=== PATIENT | female | born 1995 | race African-American/Black ===

== ENCOUNTER 2018-03-23 15:11 | Emergency (ER) | payer BC, MEDICAID ==
--- NOTE | 2018-03-23 15:43 | ER Document Report ---
ED Medical Screen (RME) - General Chief Complaint: Psych Problem Stated Complaint: PSYCH EVAL Time Seen by Provider: 03/23/18 15:35 Notes: RAPID MEDICAL EVALUATION DISCLOSURE I have seen this patient as part of a Rapid Medical Evaluation and, if applicable, placed any initially appropriate orders. The patient will be seen and fully evaluated, including a full history and physical exam, by a provider ( in Main ED or Fast Track) when a room becomes available. 22-year-old female brought here by mother after recommendations to do so by her school counselor for a mental health evaluation. Mother states that over the past year, she has been having mood swings, lashing out at others, becoming very angry, having suicidal thoughts, and wanted to bring her here to be evaluated. The patient does endorse suicidal ideations but does not have a plan. She denies homicidal ideations. She does smoke marijuana but denies other illicit drugs and alcohol. Denies any formal psychiatric diagnoses and mother states "she has never been put on any medicines". EXAM CTAB RRR TRAVEL OUTSIDE OF THE [place] IN LAST 30 DAYS: No - Related Data Allergies/Adverse Reactions: No Known Allergies Allergy (Unverified 01/04/14 23:19) Past Medical History - Immunizations Immunizations up to date: Yes Hx Diphtheria, Pertussis, Tetanus Vaccination: Yes Physical Exam - Vital signs Vitals: Temp Pulse Resp BP Pulse Ox 98.7 F 77 16 141/99 H 100 03/23/18 15:17 03/23/18 15:17 03/23/18 15:17 03/23/18 15:17 03/23/18 15:17 Course - Vital Signs Vital signs: Temp Pulse Resp BP Pulse Ox 98.7 F 77 16 141/99 H 100 03/23/18 15:17 03/23/18 15:17 03/23/18 15:17 03/23/18 15:17 03/23/18 15:17 Doctor's Discharge - Discharge Referrals: KANDI VIDAL MD [Primary Care Provider] - Follow up as needed
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
[2018-03-23 17:10] LABS: ABSOLUTE EOSINOPHILS # (AUTO) 0.1 10^3/uL (0.0-0.6); ABSOLUTE MONOCYTES (AUTO) 0.4 10^3/uL (0.1-1.4); ABSOLUTE NEUT (AUTO) 2.5 10^3/uL (1.7-8.2); BASOPHILS % (AUTO) 0.6 % (0-2); HEMATOCRIT 44.1 % (36.0-47.0); HEMOGLOBIN 14.7 g/dL (12.0-15.5); LYMPHOCYTES % (AUTO) 40.1 % (13-45); MEAN CORPUSCULAR HEMOGLOBIN 29.2 pg (27.0-33.4); MEAN CORPUSCULAR HGB CONC 33.2 g/dL (32.0-36.0); MEAN CORPUSCULAR VOLUME 88 fl (80-97); MONOCYTES % (AUTO) 8.5 % (3-13); PLATELET COUNT 150 10^3/uL (150-450); RED BLOOD COUNT 5.03 10^6/uL (3.72-5.28); RED CELL DISTRIBUTION WIDTH 13.3 % (11.5-14.0); SEGMENTED NEUTROPHILS % (AUTO) 49.8 % (42-78); TOTAL CELLS COUNTED % (AUTO) 100 %
[2018-03-23 17:17] LABS: APPEARANCE,URINE CLEAR; BILIRUBIN,URINE NEGATIVE (NEGATIVE); COLOR,URINE YELLOW; GLUCOSE, URINE NEGATIVE (NEGATIVE); KETONES,URINE NEGATIVE (NEGATIVE); LEUKOCYTE ESTERASE,URINE NEGATIVE (NEGATIVE); NITRITE,URINE NEGATIVE (NEGATIVE); PROTEIN,URINE NEGATIVE (NEGATIVE); URINE SPECIFIC GRAVITY 1.009
[2018-03-23] MEDS ORDERED: OLANZAPINE INJ/PF 10 MG SDV IM ONE (17:24)
[2018-03-23] MEDS ORDERED: CHLORPROMAZINE HCL 50 MG TABLET PO PRN (17:24)
[2018-03-23] MEDS ORDERED: BENZTROPINE MESYLATE INJ 2 MG/2 ML AMPULE IM ONE (17:25)
[2018-03-23 17:34] LABS: URINE AMPHETAMINES SCREEN NEGATIVE; URINE BARBITURATES SCREEN NEGATIVE; URINE BENZODIAZEPINES SCREEN NEGATIVE; URINE COCAINE SCREEN NEGATIVE; URINE MARIJUANA (THC) SCREEN UNCONFIRMED POSITIVE; URINE METHADONE SCREEN NEGATIVE; URINE PHENCYCLIDINE SCREEN NEGATIVE
[2018-03-23 17:41] LABS: ALANINE AMINOTRANSFERASE 16 U/L (9-52); ALBUMIN 4.6 g/dL (3.5-5.0); ALKALINE PHOSPHATASE 48 U/L (38-126); ANION GAP 14 (5-19); ASPARTATE AMINO TRANSFERASE 21 U/L (14-36); BILIRUBIN,DIRECT 0.3 mg/dL (0.0-0.4); BILIRUBIN,TOTAL 0.7 mg/dL (0.2-1.3); BLOOD UREA NITROGEN 7 mg/dL (7-20); CALCIUM 9.9 mg/dL (8.4-10.2); CARBON DIOXIDE 26 mmol/L (22-30); CHLORIDE 105 mmol/L (98-107); GLUCOSE 81 mg/dL (75-110); POTASSIUM 3.6 mmol/L (3.6-5.0); SODIUM 144.7 mmol/L (137-145); TOTAL PROTEIN 8.3 g/dL (6.3-8.2)
[2018-03-23 17:42] LABS: ACETAMINOPHEN < 10 ug/mL (10-30); ALCOHOL < 10 mg/dL (NONE DETECTED); SALICYLATE < 1.0 mg/dL (2.0-20.0)
--- NOTE | 2018-03-23 19:56 | EKG REPORT ---
SEVERITY:- ABNORMAL ECG - SINUS RHYTHM ATRIAL PREMATURE COMPLEX PROBABLE LEFT VENTRICULAR HYPERTROPHY : Confirmed by: Issac Tipton MD 23-Mar-2018 19:55:53
--- NOTE | 2018-03-23 22:32 | ER Document Report ---
ED Psych Disorder / Suicide - General Chief Complaint: Psych Problem Stated Complaint: PSYCH EVAL Time Seen by Provider: 03/23/18 15:35 Notes: 22-year-old female patient sent here for evaluation of suicidal ideation and depression. Patient refusing to talk to me at this time will only talk to mental health provider. Will not cooperate with the exam. Tearful and crying TRAVEL OUTSIDE OF THE [place] IN LAST 30 DAYS: No - HPI Patient complains to provider of: Agitated, Suicidal ideation Onset: Other - Unknown - Related Data Allergies/Adverse Reactions: No Known Allergies Allergy (Unverified 01/04/14 23:19) Past Medical History - General Information source: [facility] Records Cannot obtain history due to: Uncooperative - Social History Smoking Status: Current Every Day Smoker Chew tobacco use (# tins/day): No Frequency of alcohol use: Rare Drug Abuse: Marijuana Family History: Reviewed & Not Pertinent Patient has suicidal ideation: Yes Patient has homicidal ideation: No Pulmonary Medical History: Reports: Hx Asthma Renal/ Medical History: Denies: Hx Peritoneal Dialysis Psychiatric Medical History: Reports: Hx Depression Past Surgical History: Reports: Hx Tonsillectomy - Immunizations Immunizations up to date: Yes Hx Diphtheria, Pertussis, Tetanus Vaccination: Yes Review of Systems - Review of Systems -: Yes ROS unobtainable due to patient's medical condition - She is uncooperative, will not cooperate with questioning or exam. Physical Exam - Vital signs Vitals: Temp Pulse Resp BP Pulse Ox 98.7 F 77 16 141/99 H 100 03/23/18 15:17 03/23/18 15:17 03/23/18 15:17 03/23/18 15:17 03/23/18 15:17 Interpretation: Normal - General General appearance: Appears well, Alert - HEENT Head: Normocephalic, Atraumatic Eyes: Normal Pupils: PERRL - Respiratory Respiratory status: No respiratory distress Chest status: Nontender Breath sounds: Normal Chest palpation: Normal - Cardiovascular Rhythm: Regular Heart sounds: Normal auscultation Murmur: No - Abdominal Inspection: Normal Distension: No distension Bowel sounds: Normal Tenderness: Nontender Organomegaly: No organomegaly - Extremities General upper extremity: Normal inspection, Nontender, Normal color, Normal ROM , Normal temperature General lower extremity: Normal inspection, Nontender, Normal color, Normal ROM , Normal temperature, Normal weight bearing. No: Gricelda's sign - Skin Skin Temperature: Warm Skin Moisture: Dry Skin Color: Normal Course - Re-evaluation Re-evalutation: 03/23/18 22:31 Mental health was able to get more information on patient. Currently at this time they made what medication recommendations and I have complied with these recommendations. Patient is sleeping at this time. Will continue to follow throughout the night but anticipate she will be here overnight mental health will need to see her in the morning. 03/23/18 22:32 Laboratory 03/23/18 03/23/18 03/23/18 16:51 16:51 16:51 WBC 5.0 RBC 5.03 Hgb 14.7 Hct 44.1 MCV 88 MCH 29.2 MCHC 33.2 RDW 13.3 Plt Count 150 Seg Neutrophils % 49.8 Lymphocytes % 40.1 Monocytes % 8.5 Eosinophils % 1.0 Basophils % 0.6 Absolute Neutrophils 2.5 Absolute Lymphocytes 2.0 Absolute Monocytes 0.4 Absolute Eosinophils 0.1 Absolute Basophils 0.0 Sodium 144.7 Potassium 3.6 Chloride 105 Carbon Dioxide 26 Anion Gap 14 BUN 7 Creatinine 0.64 Est GFR ( Amer) > 60 Est GFR (Non-Af Amer) > 60 Glucose 81 Calcium 9.9 Total Bilirubin 0.7 Direct Bilirubin 0.3 Neonat Total Bilirubin Not Reportable Neonat Direct Bilirubin Not Reportable Neonat Indirect Bili Not Reportable AST 21 ALT 16 Alkaline Phosphatase 48 Total Protein 8.3 H Albumin 4.6 Urine Color YELLOW Urine Appearance CLEAR Urine pH 6.0 Ur Specific [place] 1.009 Urine Protein NEGATIVE Urine Glucose (UA) NEGATIVE Urine Ketones NEGATIVE Urine Blood NEGATIVE Urine Nitrite NEGATIVE Urine Bilirubin NEGATIVE Urine Urobilinogen 2.0 H Ur Leukocyte Esterase NEGATIVE Urine WBC (Auto) 1 Urine RBC (Auto) 0 Squamous Epi Cells Auto 1 Urine Mucus (Auto) RARE Urine Ascorbic Acid NEGATIVE Salicylates < 1.0 L Urine Opiates Screen Urine Methadone Screen Acetaminophen < 10 L Ur Barbiturates Screen Ur Phencyclidine Scrn Ur Amphetamines Screen U Benzodiazepines Scrn Urine Cocaine Screen U Marijuana (THC) Screen Serum Alcohol < 10 03/23/18 16:51 WBC RBC Hgb Hct MCV MCH MCHC RDW Plt Count Seg Neutrophils % Lymphocytes % Monocytes % Eosinophils % Basophils % Absolute Neutrophils Absolute Lymphocytes Absolute Monocytes Absolute Eosinophils Absolute Basophils Sodium Potassium Chloride Carbon Dioxide Anion Gap BUN Creatinine Est GFR ( Amer) Est GFR (Non-Af Amer) Glucose Calcium Total Bilirubin Direct Bilirubin Neonat Total Bilirubin Neonat Direct Bilirubin Neonat Indirect Bili AST ALT Alkaline Phosphatase Total Protein Albumin Urine Color Urine Appearance Urine pH Ur Specific Summit Urine Protein Urine Glucose (UA) Urine Ketones Urine Blood Urine Nitrite Urine Bilirubin Urine Urobilinogen Ur Leukocyte Esterase Urine WBC (Auto) Urine RBC (Auto) Squamous Epi Cells Auto Urine Mucus (Auto) Urine Ascorbic Acid Salicylates Urine Opiates Screen NEGATIVE Urine Methadone Screen NEGATIVE Acetaminophen Ur Barbiturates Screen NEGATIVE Ur Phencyclidine Scrn NEGATIVE Ur Amphetamines Screen NEGATIVE U Benzodiazepines Scrn NEGATIVE Urine Cocaine Screen NEGATIVE U Marijuana (THC) Screen UNCONFIRMED POSITIVE Serum Alcohol - Vital Signs Vital signs: Temp Pulse Resp BP Pulse Ox 98.5 F 75 16 135/60 H 100 03/23/18 17:53 03/23/18 17:53 03/23/18 17:53 03/23/18 17:53 03/23/18 17:53 - Laboratory Result Diagrams: 03/23/18 16:51 03/23/18 16:51 Laboratory results interpreted by me: 03/23/18 03/23/18 16:51 16:51 Total Protein 8.3 H Urine Urobilinogen 2.0 H Salicylates < 1.0 L Acetaminophen < 10 L Discharge - Discharge Clinical Impression: Major depressive disorder Qualifiers: Major depression recurrence: single episode Active/Remission status: currently active Major depression episode severity: severe Psychotic features: with psychotic features Qualified Code(s): F32.3 - Major depressive disorder, single episode, severe with psychotic features Condition: Good Referrals: KANDI VIDAL MD [ACTIVE STAFF] - Follow up as needed
[2018-03-24] MEDS ORDERED: ONDANSETRON 4 MG TAB.RAPDIS PO ONE (01:38)
--- NOTE | 2018-03-24 10:14 | ER Document Report ---
Doctor's Note Notes: 03/24/18 10:13 Rounds: Chart reviewed and patient interviewed. Patient is being evaluated for depression that has been present to some degree off and on over the past year. She is also had some expression of suicidal thoughts. Lab studies were all normal except for positive for marijuana on drug screen. Vital signs are all normal. Patient appears to be medically stable for transfer or discharge. Denise Quintero MD
[2018-03-24] MEDS ORDERED: BUSPIRONE HCL 10 MG TABLET PO ONE (15:21)
[2018-03-24] MEDS ORDERED: VENLAFAXINE HCL 37.5 MG CAP.SR.24H PO ONE (15:21)
[2018-03-24 17:39] VITALS: BP 125/78
--- NOTE | 2018-03-28 13:52 | PSYCHOLOGICAL NOTE ---
Psych Note - Psych Note Psych Note: Reason for Consult: Depression Consent permissions: mother, Margaux, in room at patient's request 22-year-old female brought here by mother after recommendations to do so by her school counselor for a mental health evaluation. Mother states that over the past year, she has been having mood swings, lashing out at others, becoming very angry, having suicidal thoughts, and wanted to bring her here to be evaluated. Clinician conducted check in with patient Patient engaged with clinician problem solving for coping skills. She reports she enjoys singing, dancing, and would like to get more involved in her shai. Patient thinks she would like to join her yarsanism choir. Patient is noted to smiling and family reports they would like the family to come home. Patient confirms she would like continued outpatient but does express concern for the stigma of getting mental health assistance. Clinician contacted patient's mother, she confirms she noticed the patient has improved and has no concerns with the patient returning home. She confirms she would like to be part of the discharge plan to ensure the patient follows up with mental health hand does not have access to medication and weapons. Medication recommendations per [facility]'s contracted psychiatrist Dr. Castro ESCALANTE are as follows Effexor 37.5mg daily Bupsar 5mg twice daily Diagnosis 311 (F32.9) unspecified depressive disorder per history provided by patient's mother 292.9 (1 2.99) unspecified cannabis related disorder per history provided by patient Impression/plan: patient is recommended for rescind of IVC. Patient is calm and noted to have euthymic mood as evidenced by smiling and engaging with clinician. Patient;s mother has no concerns with the patient return home. Patient's mother confirms she would like to be part of the discharge plan to ensure the patient follows up with mental health hand does not have access to medication and weapons. Patient is recommended to follow up with outpatient mental health services and is highly encouraged to stop using drugs. Dr. Yeung was consulted on the care and management of this patient; attending physician is in agreement with recommendations and disposition.
== END 2018-03-24 17:41 | disposition home or self-care (01) ==
LOC: ER 15:11
DX: F32.3 Major depressive disorder, single episode, severe with psychotic features (principal); R45.851 Suicidal ideations; F17.200 Nicotine dependence, unspecified, uncomplicated; F12.10 Cannabis abuse, uncomplicated; J45.909 Unspecified asthma, uncomplicated
CPT/HCPCS: 93005; 99285; 96372; 36415; 80307 ×4; 84702; 85025; 80053; 81001; 93010; J0515; J3490 ×2; S0119

== ENCOUNTER 2018-03-30 16:38 | Emergency (ER) | payer BC ==
--- NOTE | 2018-03-30 17:33 | ER Document Report ---
ED General - General Chief Complaint: Psych Problem Stated Complaint: PSYCH EVAL Time Seen by Provider: 03/30/18 17:23 TRAVEL OUTSIDE OF THE [place] IN LAST 30 DAYS: No - HPI Notes: Patient is a 22-year-old female with a history of mental health disorders who presents to the ED complaining of agitation, irritation, decreased appetite, weight loss, suicidal ideation without planning a repeat exam. Patient states that she was steroid and ED evaluated by port today, but mother was called to bring her to the emergency department as she was becoming very agitated and angry. Mother states that she is also been eating small amounts and has been losing weight over the last year. Patient states that she is aware of her behavior and her thoughts and knows that she needs to get help. Patient was evaluated several days ago and was placed on medications at that time. She otherwise has no other concerns or complaints. She is urinating normally and having normal bowel movements. Denies any drug allergies. Denies any headache , fever, head injury, neck pain, changes in vision/speech/hearing, URI, sore throat, chest pain, palpitations, syncope, cough, shortness of breath, wheeze, dyspnea, abdominal pain, nausea/vomiting/diarrhea, urinary retention, dysuria, hematuria, loss of control of bowel or bladder, numbness/tingling, or rash. Patient denies any homicidal ideations/planning. - Related Data Allergies/Adverse Reactions: No Known Allergies Allergy (Verified 03/30/18 17:38) Past Medical History - Social History Smoking Status: Current Every Day Smoker Family History: Reviewed & Not Pertinent Pulmonary Medical History: Reports: Hx Asthma Renal/ Medical History: Denies: Hx Peritoneal Dialysis Psychiatric Medical History: Reports: Hx Depression Past Surgical History: Reports: Hx Tonsillectomy - Immunizations Immunizations up to date: Yes Hx Diphtheria, Pertussis, Tetanus Vaccination: Yes Review of Systems - Review of Systems -: Yes All other systems reviewed and negative Physical Exam - Vital signs Vitals: Temp Pulse Resp BP Pulse Ox 98.8 F 66 16 140/90 H 100 03/30/18 16:58 03/30/18 16:58 03/30/18 16:58 03/30/18 16:58 03/30/18 16:58 - Notes Notes: PHYSICAL EXAMINATION: GENERAL: Well-appearing, well-nourished and in no acute distress. A&ox4. Answers questions appropriately. HEAD: Atraumatic, normocephalic. EYES: Pupils equal round and reactive to light, extraocular movements intact, sclera anicteric, conjunctiva are normal. ENT: Nares patent and without discharge. oropharynx clear without exudates. No tonsilar hypertrophy or erythema. Moist mucous membranes. NECK: Normal range of motion, supple without lymphadenopathy LUNGS: Breath sounds clear to auscultation bilaterally and equal. No wheezes rales or rhonchi. HEART: Regular rate and rhythm without murmurs, rubs, gallops. ABDOMEN: Soft, nontender, nondistended abdomen. No guarding, no rebound. No masses appreciated. Normal bowel sounds present. No CVA tenderness bilaterally. Musculoskeletal: FROM to passive/active. Strength 5+/5. Extremities: No cyanosis, clubbing, or edema b/l. Peripheral pulses 2+. Capillary refill less than 3 seconds. NEUROLOGICAL: Cranial nerves grossly intact. Normal speech, normal gait. PSYCH: agitated, somewhat emotional. Not acting violent currently. SKIN: Warm, Dry, normal turgor, no rashes or lesions noted. Course - Re-evaluation Re-evalutation: 03/30/18 17:34 We will have our psychology team evaluate the patient. 03/30/18 17:59 I was able to speak with our Psychology team about this patient currently who is familiar with this patient. She currently is having passive SI. Pt is willing to remain overnight voluntarily for evaluation tomorrow morning. We will hold off on IVC petition unless circumstances change throughout the night. Pt in agreement with plan. - Vital Signs Vital signs: Temp Pulse Resp BP Pulse Ox 98.8 F 66 16 140/90 H 100 03/30/18 16:58 03/30/18 16:58 03/30/18 16:58 03/30/18 16:58 03/30/18 16:58
--- NOTE | 2018-03-30 19:29 | EKG REPORT ---
SEVERITY:- NORMAL ECG - SINUS RHYTHM : Confirmed by: Issac Tipton MD 30-Mar-2018 19:28:52
[2018-03-30 19:36] LABS: ABSOLUTE LYMPHOCYTES (AUTO) 1.8 10^3/uL (0.5-4.7); ABSOLUTE MONOCYTES (AUTO) 0.4 10^3/uL (0.1-1.4); ABSOLUTE NEUT (AUTO) 2.9 10^3/uL (1.7-8.2); BASOPHILS % (AUTO) 0.7 % (0-2); EOSINOPHILS % (AUTO) 0.8 % (0-6); HEMOGLOBIN 14.3 g/dL (12.0-15.5); LYMPHOCYTES % (AUTO) 34.9 % (13-45); MEAN CORPUSCULAR HEMOGLOBIN 28.6 pg (27.0-33.4); MEAN CORPUSCULAR HGB CONC 32.5 g/dL (32.0-36.0); MEAN CORPUSCULAR VOLUME 88 fl (80-97); MONOCYTES % (AUTO) 8.5 % (3-13); PLATELET COUNT 148 10^3/uL (150-450); RED CELL DISTRIBUTION WIDTH 13.2 % (11.5-14.0); SEGMENTED NEUTROPHILS % (AUTO) 55.1 % (42-78); TOTAL CELLS COUNTED % (AUTO) 100 %; WHITE BLOOD COUNT 5.2 10^3/uL (4.0-10.5)
[2018-03-30 20:07] LABS: ALANINE AMINOTRANSFERASE 22 U/L (9-52); ALBUMIN 4.7 g/dL (3.5-5.0); ALKALINE PHOSPHATASE 56 U/L (38-126); ANION GAP 13 (5-19); ASPARTATE AMINO TRANSFERASE 19 U/L (14-36); BILIRUBIN,DIRECT 0.3 mg/dL (0.0-0.4); BILIRUBIN,TOTAL 0.7 mg/dL (0.2-1.3); BLOOD UREA NITROGEN 9 mg/dL (7-20); CARBON DIOXIDE 23 mmol/L (22-30); CHLORIDE 105 mmol/L (98-107); GLUCOSE 74 mg/dL (75-110); POTASSIUM 4.3 mmol/L (3.6-5.0); SODIUM 140.5 mmol/L (137-145); TOTAL PROTEIN 8.4 g/dL (6.3-8.2)
[2018-03-30 20:08] LABS: ACETAMINOPHEN < 10 ug/mL (10-30); ALCOHOL < 10 mg/dL (NONE DETECTED); SALICYLATE < 1.0 mg/dL (2.0-20.0)
[2018-03-30 20:23] LABS: FREE T3 3.35 pg/mL (2.77-5.27); FREE T4 (FREE THYROXINE) 1.24 ng/dL (0.78-2.19)
[2018-03-30 20:36] LABS: THYROID STIMULATING HORMONE 0.73 uIU/mL (0.47-4.68)
[2018-03-30 21:19] LABS: APPEARANCE,URINE CLEAR; BILIRUBIN,URINE NEGATIVE (NEGATIVE); COLOR,URINE YELLOW; GLUCOSE, URINE NEGATIVE (NEGATIVE); KETONES,URINE 20 mg/dL (NEGATIVE); LEUKOCYTE ESTERASE,URINE NEGATIVE (NEGATIVE); NITRITE,URINE NEGATIVE (NEGATIVE); PROTEIN,URINE NEGATIVE (NEGATIVE); URINE SPECIFIC GRAVITY 1.019
[2018-03-30 21:38] LABS: URINE AMPHETAMINES SCREEN NEGATIVE; URINE BARBITURATES SCREEN NEGATIVE; URINE BENZODIAZEPINES SCREEN NEGATIVE; URINE COCAINE SCREEN NEGATIVE; URINE MARIJUANA (THC) SCREEN UNCONFIRMED POSITIVE; URINE METHADONE SCREEN NEGATIVE; URINE PHENCYCLIDINE SCREEN NEGATIVE
[2018-03-30] MEDS ORDERED: VENLAFAXINE HCL 37.5 MG CAP.SR.24H PO SCH (22:30)
[2018-03-30] MEDS ORDERED: DIPHENHYDRAMINE HCL 25 MG CAPSULE PO SCH (22:30)
[2018-03-30] MEDS: BUSPIRONE HCL 10 MG TABLET PO SCH (23:08)
[2018-03-30] MEDS ORDERED: VENLAFAXINE HCL 37.5 MG CAP.SR.24H PO ONE (23:13)
--- NOTE | 2018-03-31 04:04 | ER Document Report ---
ED General - General Chief Complaint: Psych Problem Stated Complaint: PSYCH EVAL Time Seen by Provider: 03/30/18 17:23 Mode of Arrival: Ambulatory Information source: Patient, Parent Notes: This is a 22-year-old female who is accompanied by her mother and was referred here from [facility] because of depression, agitation, thoughts of wanting to hurt her self. She does have a history of depression and has been evaluated here in the past. TRAVEL OUTSIDE OF THE [place] IN LAST 30 DAYS: No - HPI Onset: Last week Onset/Duration: Gradual Quality of pain: No pain Severity: None Pain Level: Denies Associated symptoms: denies: Chest pain, Headache, Shortness of breath Exacerbated by: Denies Relieved by: Denies Similar symptoms previously: Yes Recently seen / treated by doctor: Yes - Related Data Allergies/Adverse Reactions: No Known Allergies Allergy (Verified 03/30/18 17:38) Past Medical History - General Information source: Patient - Social History Smoking Status: Current Every Day Smoker Cigarette use (# per day): Yes - Half pack per day Chew tobacco use (# tins/day): No Frequency of alcohol use: None Drug Abuse: None Lives with: Family Family History: Reviewed & Not Pertinent Patient has suicidal ideation: Yes Patient has homicidal ideation: No Pulmonary Medical History: Reports: Hx Asthma Renal/ Medical History: Denies: Hx Peritoneal Dialysis Psychiatric Medical History: Reports: Hx Depression Past Surgical History: Reports: Hx Tonsillectomy - Immunizations Immunizations up to date: Yes Hx Diphtheria, Pertussis, Tetanus Vaccination: Yes Review of Systems - Review of Systems Constitutional: denies: Chills, Fever EENT: No symptoms reported Cardiovascular: denies: Chest pain, Palpitations, Heart racing Respiratory: denies: Cough, Short of breath, Wheezing Gastrointestinal: denies: Abdomen distended, Abdominal pain, Vomiting Genitourinary: No symptoms reported Female Genitourinary: No symptoms reported Musculoskeletal: No symptoms reported Skin: No symptoms reported Hematologic/Lymphatic: No symptoms reported Neurological/Psychological: See HPI Physical Exam - Vital signs Vitals: Temp Pulse Resp BP Pulse Ox 98.8 F 66 16 140/90 H 100 03/30/18 16:58 03/30/18 16:58 03/30/18 16:58 03/30/18 16:58 03/30/18 16:58 Notes: Physical exam: GENERAL: 22-year-old female, alert and oriented 3, no acute distress HEAD: Atraumatic, normocephalic. EYES: Pupils equal round and reactive to light, extraocular movements intact, sclera anicteric, conjunctiva are normal. ENT: TMs normal, nares patent, oropharynx clear without exudates. Moist mucous membranes. NECK: Normal range of motion, supple without obvious mass or JVD. LUNGS: Breath sounds clear to auscultation bilaterally and equal. No wheezes rales or rhonchi. HEART: Regular rate and rhythm without murmurs, rubs or gallops. ABDOMEN: Soft, normoactive bowel sounds. No tenderness to palpation. No guarding, no rebound. No masses appreciated. EXTREMITIES: Normal range of motion, no pitting or edema. No clubbing or cyanosis. NEUROLOGICAL: Cranial nerves II through XII grossly intact. Normal speech, moving all extremities. PSYCH: Normal mood, normal affect. SKIN: Warm, Dry, normal turgor, no rashes or lesions noted. Course - Re-evaluation Re-evalutation: 03/31/18 04:05 Patient is medically stable for psychiatric disposition - Vital Signs Vital signs: Temp Pulse Resp BP Pulse Ox 98.8 F 66 16 140/90 H 100 03/30/18 16:58 03/30/18 16:58 03/30/18 16:58 03/30/18 16:58 03/30/18 16:58 - Laboratory Result Diagrams: 03/30/18 18:47 03/30/18 18:47 Laboratory results interpreted by me: 03/30/18 03/30/18 03/30/18 18:47 18:47 19:14 Plt Count 148 L Glucose 74 L Total Protein 8.4 H Urine Ketones 20 H Urine Urobilinogen 4.0 H Salicylates < 1.0 L Acetaminophen < 10 L Discharge - Discharge Clinical Impression: Depression, Suicidal ideation Condition: Stable Disposition: PSYCH HOSP/UNIT
[2018-03-31] MEDS ORDERED: LORAZEPAM 1 MG TABLET PO ONE (06:43)
[2018-03-31] MEDS: BUSPIRONE HCL 10 MG TABLET PO SCH (09:41)
[2018-03-31] MEDS ORDERED: VENLAFAXINE HCL 37.5 MG CAP.SR.24H PO SCH (10:00)
--- NOTE | 2018-03-31 10:01 | ER Document Report ---
Doctor's Note Notes: 03/31/18 10:00 As the rounding physician for our psychiatric patients, I have reviewed the chart, vitals, lab work. Patient has been examined and noted to be . I am awaiting mental health in [facility]. Patient is resting comfortably. She has no complaints at this time. No reported events overnight. Awaiting psych recommendations. PHYSICAL EXAMINATION: GENERAL: Well-appearing, well-nourished and in no acute distress. HEAD: Atraumatic, normocephalic. EYES: Pupils equal round extraocular movements intact, conjunctiva are normal. ENT: Nares patent NECK: Normal range of motion LUNGS: No respiratory distress Musculoskeletal: Normal range of motion NEUROLOGICAL: Normal speech, normal gait. PSYCH: Normal mood, normal affect. SKIN: Warm, Dry, normal turgor, no rashes or lesions noted. 04/01/18 17:08
[2018-03-31 16:24] VITALS: BP 119/68
--- NOTE | 2018-04-07 09:14 | PSYCHOLOGICAL NOTE ---
Psych Note - Psych Note Psych Note: Reason for Consult: Suicidal ideation This is a 22-year-old female who is accompanied by her mother and was [place] because of depression, agitation, thoughts of wanting to hurt her self. Patient disclosed continued difficulties with her depression and anxiety. She reports significant weight loss from vomiting and unable to eat. She continues to discuss the situation that originally started with episode of difficulties ( ie cyber bulling and the man she was intimate with proposed to another women). Patient is noted to have odd affect at times and is noted to have a look of being scared/terrified on her face. Patient mentioned to clinician how she does not appreciate being awoken by people mocking and making fun of her. She reports she has hear a man's voice laughing and saying "your boyfriend is auctioning off the house because your on meth....I swear to you I have never done meth or any drugs...I only smoke weed." Patient denies hearing or seeing anything that confuses or scares her; however, she still periodically becomes frightened. Patient is alert and orientated to person, place, time and circumstance. Mood is liable with odd affect ie patient presents with affect demonstrating she is scared multiple times. Patient endorses passive suicidal ideation denies homicidal ideation. Thought processes are organized and linear. Patient is demonstrating paranoia with possible auditory hallucinations. Eye contact was poor. Conversational speech was tearful at times, difficult to hear with other times talking in a normal tone. Attention and concentration are poor. Insight, judgment, impulse control are poor. Diagnosis 311 (F32.9) unspecified depressive disorder per history provided by patient's mother 292.9 (1 2.99) unspecified cannabis related disorder per history provided by patient Impression/plan: patient is recommended for IVC. Patient's persentation has not significantly improved since her last [facility] ED visit. Patient presents with odd affect (at times euthymic that quickly shifts to fearful). The patient demonstrates paranoia awith possible hallucinations. Patient was accepted to [facility]; transportation will occur today. Dr. Yeung was consulted on the care and management of this patient; attending physician is in agreement with recommendations and disposition.
== END 2018-03-31 17:10 ==
LOC: ER 16:38
DX: R45.851 Suicidal ideations (principal); F32.9 Major depressive disorder, single episode, unspecified; F17.210 Nicotine dependence, cigarettes, uncomplicated
CPT/HCPCS: 93005; 99285; 36415; 84439; 80307 ×4; 84443; 85025; 81025; 80053; 81001; 84481; 93010; J3490 ×2

== ENCOUNTER 2018-12-22 18:19 | Emergency (ER) | payer SELFPAY ==
--- NOTE | 2018-12-22 18:56 | ER Document Report ---
ED Medical Screen (RME) - General Chief Complaint: Psych Problem Stated Complaint: IVC WITH PAPERS Time Seen by Provider: 12/22/18 18:46 Mode of Arrival: Ambulatory Information source: Law Enforcement Notes: 23-year-old female presented to ED with IVC papers for aggressive behavior and threat to self and others. She is being IVC by mobile crisis and came accompanied by police officers. She states that every time she turns the TV on there is something threatening on the TV and she does not think that fear that the TV has threatening staff like guns in stuff on it every time she turns it on. She also states that every time she turns on the Internet there is threatening staff and she is offended that this is on the Internet. She is her uncle is with her and keeps telling her she could turn it anything off she does not have to see that but patient states that it is threatening that is there. She does have a history of depression. She states she was treated negligent only the last time she was here because she was involuntarily committed to [facility] without getting a tetanus shot and her tetanus was not up-to-date. I tried to explain to her that that is not protocol to give that a shot before you go to mental health facility but she continues to say she was treated at [facility]. I have greeted and performed a rapid initial assessment of this patient. A comprehensive ED assessment and evaluation of the patient, analysis of test results and completion of medical decision making process will be conducted by an additional ED providers. Dictation of this chart was performed using voice recognition software; therefore, there may be some unintended grammatical errors. TRAVEL OUTSIDE OF THE [place] IN LAST 30 DAYS: No - Related Data Allergies/Adverse Reactions: No Known Allergies Allergy (Verified 03/30/18 17:38) Past Medical History Pulmonary Medical History: Reports: Hx Asthma Renal/ Medical History: Denies: Hx Peritoneal Dialysis Psychiatric Medical History: Reports: Hx Depression Past Surgical History: Reports: Hx Tonsillectomy - Immunizations Immunizations up to date: Yes Hx Diphtheria, Pertussis, Tetanus Vaccination: Yes Physical Exam - Vital signs Vitals: Temp Pulse Resp BP Pulse Ox 98.8 F 106 H 16 143/82 H 99 12/22/18 18:44 12/22/18 18:44 12/22/18 18:44 12/22/18 18:44 12/22/18 18:44 Course - Vital Signs Vital signs: Temp Pulse Resp BP Pulse Ox 98.8 F 106 H 16 143/82 H 99 12/22/18 18:44 12/22/18 18:44 12/22/18 18:44 12/22/18 18:44 12/22/18 18:44
[2018-12-22 19:43] LABS: ABSOLUTE LYMPHOCYTES (AUTO) 1.4 10^3/uL (0.5-4.7); ABSOLUTE MONOCYTES (AUTO) 0.4 10^3/uL (0.1-1.4); ABSOLUTE NEUT (AUTO) 3.7 10^3/uL (1.7-8.2); BASOPHILS % (AUTO) 0.5 % (0-2); EOSINOPHILS % (AUTO) 0.3 % (0-6); HEMATOCRIT 41.1 % (36.0-47.0); HEMOGLOBIN 13.7 g/dL (12.0-15.5); MEAN CORPUSCULAR HEMOGLOBIN 29.6 pg (27.0-33.4); MEAN CORPUSCULAR HGB CONC 33.4 g/dL (32.0-36.0); MEAN CORPUSCULAR VOLUME 89 fl (80-97); MONOCYTES % (AUTO) 7.9 % (3-13); PLATELET COUNT 149 10^3/uL (150-450); RED BLOOD COUNT 4.64 10^6/uL (3.72-5.28); RED CELL DISTRIBUTION WIDTH 13.1 % (11.5-14.0); SEGMENTED NEUTROPHILS % (AUTO) 66.3 % (42-78); TOTAL CELLS COUNTED % (AUTO) 100 %; WHITE BLOOD COUNT 5.6 10^3/uL (4.0-10.5)
[2018-12-22 19:53] LABS: APPEARANCE,URINE CLOUDY; BILIRUBIN,URINE NEGATIVE (NEGATIVE); COLOR,URINE RED; GLUCOSE, URINE 50 mg/dL (NEGATIVE); KETONES,URINE 20 mg/dL (NEGATIVE); LEUKOCYTE ESTERASE,URINE NEGATIVE (NEGATIVE); NITRITE,URINE POSITIVE (NEGATIVE); PROTEIN,URINE 100 mg/dL (NEGATIVE); URINE SPECIFIC GRAVITY 1.019; UROBILINOGEN,URINE NEGATIVE mg/dL (<2.0)
--- NOTE | 2018-12-22 19:53 | ER Document Report ---
ED General - General Chief Complaint: Psych Problem Stated Complaint: IVC WITH PAPERS Time Seen by Provider: 12/22/18 18:46 Mode of Arrival: Ambulatory Information source: Patient, Parent, Law Enforcement Notes: 23-year-old female with anxiety, reported major depressive disorder presented to ED with IVC papers for aggressive behavior and threat to self and others. She is being IVC by mobile crisis and came accompanied by police officers and her mother. She states that every time she turns the TV on there is something threatening on the TV. She also states that every time she turns on the Internet there is threatening staff and she is offended that this is on the Internet. She states she was treated negligent only the last time she was here because she was involuntarily committed to [facility] without getting a tetanus shot and her tetanus was not up-to-date. Patient reports that she is supposed to be taking Latuda, Trileptal, BuSpar and one other medication for sleep but cabrales s not been taking it for several weeks per the mother. Patient does admit to thoughts of suicide but does not have a clear plan. TRAVEL OUTSIDE OF THE [place] IN LAST 30 DAYS: No - HPI Onset: Other Onset/Duration: Gradual Quality of pain: No pain Severity: None Pain Level: Denies Associated symptoms: denies: Fever, Headache, Nausea, Vomiting Exacerbated by: Denies Relieved by: Denies Similar symptoms previously: Yes Recently seen / treated by doctor: No - Related Data Allergies/Adverse Reactions: No Known Allergies Allergy (Verified 03/30/18 17:38) Past Medical History - General Information source: Patient, Relative, Law Enforcement - Social History Smoking Status: Never Smoker Frequency of alcohol use: Rare Drug Abuse: Marijuana Lives with: Family Family History: Reviewed & Not Pertinent Patient has suicidal ideation: Yes Patient has homicidal ideation: No Pulmonary Medical History: Reports: Hx Asthma Renal/ Medical History: Denies: Hx Peritoneal Dialysis Psychiatric Medical History: Reports: Hx Anxiety, Hx Depression Past Surgical History: Reports: Hx Tonsillectomy - Immunizations Immunizations up to date: Yes Hx Diphtheria, Pertussis, Tetanus Vaccination: Yes Review of Systems - Review of Systems Notes: REVIEW OF SYSTEMS: CONSTITUTIONAL : Denies fever, chills, or sweats. Denies recent illness. Denies weight loss, recent hospitalizations. EENT: Denies visual changes, eye pain. Denies sore throat, oral lesions, difficulty swallowing. CARDIOVASCULAR: Denies chest pain. Denies palpitations. Denies lower extremity edema. RESPIRATORY: Denies cough. Denies shortness of breath, wheezing. GASTROINTESTINAL: Denies abdominal pain or distention. Denies nausea, vomiting, or diarrhea. Denies blood in vomitus, stools, or per rectum. Denies black, tarry stools. Denies constipation. GENITOURINARY: Denies difficulty urinating, painful urination, frequency, blood in urine, or vaginal discharge. MUSCULOSKELETAL: Denies back or neck pain or stiffness. Denies joint pain or swelling. SKIN: Denies rash, lesions or sores. HEMATOLOGIC : Denies easy bruising or bleeding. LYMPHATIC: Denies swollen glands. NEUROLOGICAL: Denies confusion or altered mental status. Denies loss of consciousness. Denies dizziness or lightheadedness. Denies headache. Denies weakness or paralysis. Denies problems difficulty with ambulation, slurred spee ch. Denies sensory loss, numbness, or tingling. Denies seizures. PSYCHIATRIC: +anxiety or stress. + depression, suicidal ideation, denies homicidal ideation. Denies visual or auditory hallucinations. Physical Exam - Vital signs Vitals: Temp Pulse Resp BP Pulse Ox 98.8 F 106 H 16 143/82 H 99 12/22/18 18:44 12/22/18 18:44 12/22/18 18:44 12/22/18 18:44 12/22/18 18:44 - Notes Notes: PHYSICAL EXAMINATION: GENERAL: Well-appearing, well-nourished and in no acute distress. HEAD: Atraumatic, normocephalic. EYES: Pupils equal round and reactive to light, extraocular movements intact, conjunctiva are normal. ENT: Nares patent, oropharynx clear without exudates. Moist mucous membranes. NECK: Normal range of motion, supple without lymphadenopathy LUNGS: Breath sounds clear to auscultation bilaterally and equal. No wheezes rales or rhonchi. HEART: Regular rate and rhythm 2/4 cephalic murmur ABDOMEN: Soft, nontender, nondistended abdomen. No guarding, no rebound. No masses appreciated. Female : deferred Musculoskeletal: Normal range of motion, no pitting or edema. No cyanosis. NEUROLOGICAL: Cranial nerves grossly intact. Normal speech, normal gait. Normal sensory, motor exams PSYCH: Anxious, easily agitated, admits to suicidal ideation. SKIN: Warm, Dry, normal turgor, no rashes or lesions noted. Course - Re-evaluation Re-evalutation: 12/22/18 20:23 Laboratory 12/22/18 12/22/18 12/22/18 18:57 19:10 19:10 WBC 5.6 RBC 4.64 Hgb 13.7 Hct 41.1 MCV 89 MCH 29.6 MCHC 33.4 RDW 13.1 Plt Count 149 L Seg Neutrophils % 66.3 Lymphocytes % 25.0 Monocytes % 7.9 Eosinophils % 0.3 Basophils % 0.5 Absolute Neutrophils 3.7 Absolute Lymphocytes 1.4 Absolute Monocytes 0.4 Absolute Eosinophils 0.0 Absolute Basophils 0.0 Sodium 143.4 Potassium 3.6 Chloride 106 Carbon Dioxide 24 Anion Gap 13 BUN 11 Creatinine 0.71 Est GFR ( Amer) > 60 Est GFR (Non-Af Amer) > 60 Glucose 76 Calcium 10.0 Total Bilirubin 0.9 Direct Bilirubin 0.3 Neonat Total Bilirubin Not Reportable Neonat Direct Bilirubin Not Reportable Neonat Indirect Bili Not Reportable AST 18 ALT 19 Alkaline Phosphatase 57 Total Protein 7.9 Albumin 4.6 Serum HCG, Qual Urine Color RED Urine Appearance CLOUDY Urine pH 6.0 Ur Specific [place] 1.019 Urine Protein 100 H Urine Glucose (UA) 50 H Urine Ketones 20 H Urine Blood LARGE H Urine Nitrite POSITIVE H Urine Bilirubin NEGATIVE Urine Urobilinogen NEGATIVE Ur Leukocyte Esterase NEGATIVE Urine WBC (Auto) >182 Urine RBC (Auto) >182 Urine Bacteria (Auto) 2+ Urine WBC Clumps MANY Squamous Epi Cells Auto 7 Urine Ascorbic Acid 40 H Salicylates < 1.0 L Urine Opiates Screen Urine Methadone Screen Acetaminophen < 10 L Ur Barbiturates Screen Ur Phencyclidine Scrn Ur Amphetamines Screen U Benzodiazepines Scrn Urine Cocaine Screen U Marijuana (THC) Screen Serum Alcohol < 10 12/22/18 12/22/18 19:10 19:17 WBC RBC Hgb Hct MCV MCH MCHC RDW Plt Count Seg Neutrophils % Lymphocytes % Monocytes % Eosinophils % Basophils % Absolute Neutrophils Absolute Lymphocytes Absolute Monocytes Absolute Eosinophils Absolute Basophils Sodium Potassium Chloride Carbon Dioxide Anion Gap BUN Creatinine Est GFR ( Amer) Est GFR (Non-Af Amer) Glucose Calcium Total Bilirubin Direct Bilirubin Neonat Total Bilirubin Neonat Direct Bilirubin Neonat Indirect Bili AST ALT Alkaline Phosphatase Total Protein Albumin Serum HCG, Qual NEGATIVE Urine Color Urine Appearance Urine pH Ur Specific [place] Urine Protein Urine Glucose (UA) Urine Ketones Urine Blood Urine Nitrite Urine Bilirubin Urine Urobilinogen Ur Leukocyte Esterase Urine WBC (Auto) Urine RBC (Auto) Urine Bacteria (Auto) Urine WBC Clumps Squamous Epi Cells Auto Urine Ascorbic Acid Salicylates Urine Opiates Screen NEGATIVE Urine Methadone Screen NEGATIVE Acetaminophen Ur Barbiturates Screen NEGATIVE Ur Phencyclidine Scrn NEGATIVE Ur Amphetamines Screen NEGATIVE U Benzodiazepines Scrn NEGATIVE Urine Cocaine Screen NEGATIVE U Marijuana (THC) Screen UNCONFIRMED POSITIVE Serum Alcohol Temp Pulse Resp BP Pulse Ox 98.8 F 106 H 16 143/82 H 99 12/22/18 18:44 12/22/18 18:44 12/22/18 18:44 12/22/18 18:44 12/22/18 18:44 23-year-old female presents with depression, suicidal ideation. Vital sign reviewed and patient is mildly tachycardic but anxious, easily becomes aggressive. Significant lab findings include a urine drug screen is positive for marijuana and consistent with urinary tract infection. Patient is cleared f or behavioral health evaluation in the morning. Keflex was given for her UTI. - Vital Signs Vital signs: Temp Pulse Resp BP Pulse Ox 98.8 F 106 H 16 143/82 H 99 12/22/18 18:44 12/22/18 18:44 12/22/18 18:44 12/22/18 18:44 12/22/18 18:44 - Laboratory Result Diagrams: 12/22/18 19:10 12/22/18 18:57 Laboratory results interpreted by me: 12/22/18 12/22/18 12/22/18 18:57 19:10 19:10 Plt Count 149 L Urine Protein 100 H Urine Glucose (UA) 50 H Urine Ketones 20 H Urine Blood LARGE H Urine Nitrite POSITIVE H Urine Ascorbic Acid 40 H Salicylates < 1.0 L Acetaminophen < 10 L Discharge - Discharge Clinical Impression: Suicidal ideation UTI (urinary tract infection) Qualifiers: Urinary tract infection type: site unspecified Hematuria presence: with hematuria Qualified Code(s): N39.0 - Urinary tract infection, site not specified; R31.9 - Hematuria, unspecified Condition: Good Disposition: OTHER Instructions: Urinary Tract Infection ([facility]) Additional Instructions: Your urine shows findings consistent with a urinary tract infection. Please take all the antibiotics as directed even if your symptoms have improved. Please follow-up with your primary care physician as needed. Return to emergency room if you develop fever >101F, persistent vomiting, become lethargic, have severe pain in your sides, or any other symptoms that are conc erning to you. Forms: Elevated Blood Pressure
[2018-12-22 20:06] LABS: ALANINE AMINOTRANSFERASE 19 U/L (9-52); ALBUMIN 4.6 g/dL (3.5-5.0); ALKALINE PHOSPHATASE 57 U/L (38-126); ANION GAP 13 (5-19); ASPARTATE AMINO TRANSFERASE 18 U/L (14-36); BILIRUBIN,DIRECT 0.3 mg/dL (0.0-0.4); BILIRUBIN,TOTAL 0.9 mg/dL (0.2-1.3); BLOOD UREA NITROGEN 11 mg/dL (7-20); CARBON DIOXIDE 24 mmol/L (22-30); CHLORIDE 106 mmol/L (98-107); GLUCOSE 76 mg/dL (75-110); POTASSIUM 3.6 mmol/L (3.6-5.0); SODIUM 143.4 mmol/L (137-145); TOTAL PROTEIN 7.9 g/dL (6.3-8.2)
[2018-12-22 20:07] LABS: ACETAMINOPHEN < 10 ug/mL (10-30); ALCOHOL < 10 mg/dL (NONE DETECTED); SALICYLATE < 1.0 mg/dL (2.0-20.0)
[2018-12-22 20:16] LABS: URINE AMPHETAMINES SCREEN NEGATIVE; URINE BARBITURATES SCREEN NEGATIVE; URINE BENZODIAZEPINES SCREEN NEGATIVE; URINE COCAINE SCREEN NEGATIVE; URINE MARIJUANA (THC) SCREEN UNCONFIRMED POSITIVE; URINE METHADONE SCREEN NEGATIVE; URINE PHENCYCLIDINE SCREEN NEGATIVE
[2018-12-22] MEDS ORDERED: CEPHALEXIN 500 MG CAPSULE PO ONE (20:23)
[2018-12-22] MEDS ORDERED: LORAZEPAM INJ 2 MG/1 ML VIAL IM ONE (22:11)
--- NOTE | 2018-12-22 22:19 | EKG REPORT ---
SEVERITY:- ABNORMAL ECG - SINUS RHYTHM PROBABLE LEFT ATRIAL ABNORMALITY LEFT VENTRICULAR HYPERTROPHY : Confirmed by: Kimmy Marie MD 22-Dec-2018 22:18:43
[2018-12-22] MEDS ORDERED: LORAZEPAM 1 MG TABLET PO ONE (23:30)
[2018-12-23 09:49] VITALS: BP 125/93
--- NOTE | 2018-12-23 10:30 | ER Document Report ---
Doctor's Note Notes: 12/23/18 10:29 Patient seen and examined. She has no acute complaints. She states she hopes she is not sent back to [facility], she states that a staff member there told her "you are just faking it." She states she legitimately wants help. She admits to having intermittent suicidal ideations, but denies them at this time. She states she does really want help. She denies any pain at this time. Head is normocephalic and atraumatic. Pupils are equal and round, reactive to light. Heart regular rate and rhythm, lungs are clear to auscultate bilaterally. Patient is awake and alert, cooperative with examiner. Pleasant, makes good eye contact. Plan is for psychiatric hospitalization, further treatment secondary to her IVC status.
== END 2018-12-23 14:40 | disposition other institution (70) ==
LOC: ER 18:19
DX: R45.851 Suicidal ideations (principal); N39.0 Urinary tract infection, site not specified; R31.9 Hematuria, unspecified; F32.9 Major depressive disorder, single episode, unspecified; F41.9 Anxiety disorder, unspecified; T43.596A Underdosing of other antipsychotics and neuroleptics, initial encounter; T42.1X6A Underdosing of iminostilbenes, initial encounter; Z91.14 Patient's other noncompliance with medication regimen; J45.909 Unspecified asthma, uncomplicated
CPT/HCPCS: 93005; 99285; 96372; 36415; 80307 ×4; 84703; 85025; 80053; 81001; 93010; J2060

== ENCOUNTER → 2019-04-04 | Outpatient (CLI) | payer SELFPAY ==
[2019-04-04 19:33] LABS: BACTERIA (WET MOUNT) 4+ BACTERIA SEEN; EPITHELIALS (WET MOUNT) 4+ EPITHELIALS SEEN; T.VAGINALIS (WET MOUNT) NO TRICHOMONAS SEEN; WBCS (WET MOUNT) 1+ WBCS SEEN; YEAST (WET MOUNT) YEAST SEEN
[2019-04-04 20:58] LABS: CHLAM PCR NOT DETECTED (NOT DETECT)
== END ==
LOC: LAB 19:04
PROVIDERS: ATTEND Nurse Practitioner Acute Care
DX: N89.8 Other specified noninflammatory disorders of vagina (principal); R30.0 Dysuria
CPT/HCPCS: 87086; 87088; 87210; 87491; 87591

== ENCOUNTER 2019-07-04 23:45 | Emergency (ER) | payer SELFPAY ==
--- NOTE | 2019-07-05 01:15 | ER Document Report ---
ED Psych Disorder / Suicide - General Chief Complaint: Suicidal Ideation Stated Complaint: PSYCH Time Seen by Provider: 07/05/19 00:25 Primary Care Provider: MAGED SEGURA NP [Primary Care Provider] - Follow up as needed Notes: Clay is a 23 yo F w/ her depression, anxiety and bipolar disorder brought in with [facility] for suicidal ideation. Patient states that she has had suicidal thoughts. She states that she lives with her grandmother and mother and she and her mother have a poor relationship. She says "I love my mom but" she becomes quite tearful and is unable to complete the sentence. When asked if the patient is being threatened or assaulted by her mother, the patient becomes avoidant, turns away and does not answer the question. When patient is asked if she has a plan to commit suicide, the patient again is avoidant and does not answer the question. Patient states she previously smoked cigarettes as well as marijuana over she has not smoked either in quite some time. Patient denies any other drug use. Patient denies any noncompliance with medications however the mobile crisis person felt that she had not been taking her meds. Patient denies any physical complaints such as cough, chest pain, shortness of breath, abdominal pain, vomiting, diarrhea or fevers or chills. TRAVEL OUTSIDE OF THE [place] IN LAST 30 DAYS: No - Related Data Allergies/Adverse Reactions: venlafaxine [From Effexor] Allergy (Verified 07/05/19 00:04) Past Medical History - Social History Smoking Status: Former Smoker Frequency of alcohol use: None Drug Abuse: None Family History: Reviewed & Not Pertinent Patient has suicidal ideation: Yes Patient has homicidal ideation: No Pulmonary Medical History: Reports: Hx Asthma Renal/ Medical History: Denies: Hx Peritoneal Dialysis Psychiatric Medical History: Reports: Hx Anxiety, Hx Bipolar Disorder, Hx Depression Past Surgical History: Reports: Hx Tonsillectomy - Immunizations Immunizations up to date: Yes Hx Diphtheria, Pertussis, Tetanus Vaccination: Yes Review of Systems - Review of Systems Constitutional: See HPI EENT: No symptoms reported Cardiovascular: No symptoms reported Respiratory: No symptoms reported Gastrointestinal: No symptoms reported Genitourinary: No symptoms reported Female Genitourinary: No symptoms reported Musculoskeletal: No symptoms reported Skin: No symptoms reported Hematologic/Lymphatic: No symptoms reported Neurological/Psychological: See HPI Physical Exam - Vital signs Vitals: Temp Resp Pulse Ox 98.5 F 18 100 07/04/19 23:46 07/04/19 23:46 07/04/19 23:46 Interpretation: Tachycardic - General General appearance: Alert, Anxious - HEENT Head: Normocephalic, Atraumatic Eyes: Normal Pupils: PERRL - Respiratory Respiratory status: No respiratory distress Chest status: Nontender Breath sounds: Normal Chest palpation: Normal - Cardiovascular Rhythm: Regular Heart sounds: Normal auscultation Murmur: No - Abdominal Inspection: Normal Distension: No distension Bowel sounds: Normal Tenderness: Nontender Organomegaly: No organomegaly - Back Back: Normal, Nontender - Extremities General upper extremity: Normal inspection, Nontender, Normal color, Normal ROM, Normal temperature General lower extremity: Normal inspection, Nontender, Normal color, Normal ROM, Normal temperature, Normal weight bearing. No: Gricelda's sign - Neurological Neuro grossly intact: Yes Cognition: Normal Orientation: AAOx4 [place] Coma Scale Eye Opening: Spontaneous [place] Coma Scale Verbal: Oriented [place] Coma Scale Motor: Obeys Commands [place] Coma Scale Total: 15 Speech: Normal Motor strength normal: LUE, RUE, LLE, RLE Sensory: Normal - Psychological Associated symptoms: Anxious, Depressed, Flat affect, Tearful - Skin Skin Temperature: Warm Skin Moisture: Dry Skin Color: Normal Course - Re-evaluation Re-evalutation: Patient is generally well-appearing and nontoxic. Initial vitals within normal limits. Differential diagnosis includes depression, suicidal ideation, anxiety, unsafe home environment, substance abuse 07/05/19 01:13 Given the patient's history of previous suicide attempt, depression and bipolar as well as the concern for suicidal ideation and her avoidant/tearful state, plan to IVC here. Patient will be placed on a psych hold until she was evaluated tomorrow by psychiatry. Routine labs and blood work were ordered. 07/05/19 02:30 CBC within normal limits. CMP notable for mild hypokalemia which will be reple rasheed. UA is negative for evidence of infection. Urine drug screen is positive only for marijuana which the patient did endorse. Acetaminophen, ethanol and salicylate levels are unremarkable. Placed on IVC for her flat affect, suicidal ideation and avoidant nature of multiple questions. Awaiting psychiatric evaluation in a.m. - Vital Signs Vital signs: Temp Pulse Resp BP Pulse Ox 98.5 F 101 H 18 136/82 H 100 07/04/19 23:56 07/04/19 23:56 07/04/19 23:56 07/04/19 23:56 07/04/19 23:56 - Laboratory Result Diagrams: 07/05/19 01:00 07/05/19 01:00 Laboratory results interpreted by me: 07/05/19 07/05/19 07/05/19 00:52 01:00 01:00 Plt Count 144 L Potassium 3.2 L Glucose 74 L Urine Protein 30 H Urine Ketones 20 H Urine Urobilinogen 2.0 H Urine Ascorbic Acid 40 H Salicylates < 1.0 L Acetaminophen < 10 L - EKG Interpretation by Me EKG shows normal: Sinus rhythm, [place], QRS Complexes, ST-T Waves Rate: Normal Rhythm: NSR Heart block present: 1st Degree When compared to previous EKG there are: No significant change Discharge - Discharge Clinical Impression: Suicidal ideation, Stress at home Condition: Good Disposition: PSYCH HOSP/UNIT Referrals: MAGED SEGURA NP [Primary Care Provider] - Follow up as needed
[2019-07-05 01:19] LABS: APPEARANCE,URINE CLOUDY; BILIRUBIN,URINE NEGATIVE (NEGATIVE); COLOR,URINE YELLOW; GLUCOSE, URINE NEGATIVE (NEGATIVE); KETONES,URINE 20 mg/dL (NEGATIVE); LEUKOCYTE ESTERASE,URINE NEGATIVE (NEGATIVE); NITRITE,URINE NEGATIVE (NEGATIVE); PROTEIN,URINE 30 mg/dL (NEGATIVE); URINE SPECIFIC GRAVITY 1.018
[2019-07-05 01:25] LABS: URINE AMPHETAMINES SCREEN NEGATIVE; URINE BARBITURATES SCREEN NEGATIVE; URINE BENZODIAZEPINES SCREEN NEGATIVE; URINE COCAINE SCREEN NEGATIVE; URINE MARIJUANA (THC) SCREEN UNCONFIRMED POSITIVE; URINE METHADONE SCREEN NEGATIVE; URINE PHENCYCLIDINE SCREEN NEGATIVE
[2019-07-05 01:33] LABS: ABSOLUTE LYMPHOCYTES (AUTO) 1.9 10^3/uL (0.5-4.7); ABSOLUTE MONOCYTES (AUTO) 0.5 10^3/uL (0.1-1.4); ABSOLUTE NEUT (AUTO) 3.5 10^3/uL (1.7-8.2); BASOPHILS % (AUTO) 0.2 % (0-2); EOSINOPHILS % (AUTO) 0.7 % (0-6); HEMATOCRIT 40.6 % (36.0-47.0); HEMOGLOBIN 13.7 g/dL (12.0-15.5); LYMPHOCYTES % (AUTO) 31.5 % (13-45); MEAN CORPUSCULAR HEMOGLOBIN 29.9 pg (27.0-33.4); MEAN CORPUSCULAR HGB CONC 33.7 g/dL (32.0-36.0); MEAN CORPUSCULAR VOLUME 89 fl (80-97); PLATELET COUNT 144 10^3/uL (150-450); RED BLOOD COUNT 4.57 10^6/uL (3.72-5.28); RED CELL DISTRIBUTION WIDTH 13.4 % (11.5-14.0); SEGMENTED NEUTROPHILS % (AUTO) 58.6 % (42-78); TOTAL CELLS COUNTED % (AUTO) 100 %
[2019-07-05 01:39] LABS: ALBUMIN 4.1 g/dL (3.5-5.0); ALKALINE PHOSPHATASE 59 U/L (38-126); ANION GAP 12 (5-19); ASPARTATE AMINO TRANSFERASE 21 U/L (14-36); BILIRUBIN,DIRECT 0.1 mg/dL (0.0-0.4); BILIRUBIN,TOTAL 0.8 mg/dL (0.2-1.3); BLOOD UREA NITROGEN 8 mg/dL (7-20); CALCIUM 9.6 mg/dL (8.4-10.2); CARBON DIOXIDE 23 mmol/L (22-30); CHLORIDE 104 mmol/L (98-107); GLUCOSE 74 mg/dL (75-110); POTASSIUM 3.2 mmol/L (3.6-5.0); TOTAL PROTEIN 7.5 g/dL (6.3-8.2)
[2019-07-05 01:40] LABS: ACETAMINOPHEN < 10 ug/mL (10-30); ALCOHOL < 10 mg/dL (NONE DETECTED); SALICYLATE < 1.0 mg/dL (2.0-20.0)
[2019-07-05] MEDS ORDERED: POTASSIUM CHLORIDE 10 MEQ TABLET.ER PO ONE (05:36)
--- NOTE | 2019-07-05 07:09 | EKG REPORT ---
SEVERITY:- OTHERWISE NORMAL ECG - SINUS ARRHYTHMIA, RATE [id number] : Confirmed by: Issac Tipton MD 05-Jul-2019 07:09:01
--- NOTE | 2019-07-05 12:34 | ER Document Report ---
Doctor's Note Notes: 07/05/19 12:32 As the rounding provider this AM, I assessed the patient's labs, vitals, and records. Initial lab work showed she was mildly hypokalemic but was replenished by the overnight physician. Patient does complain of some mild nausea. I told her I will do a medication reconciliation to see if it would be appropriate to give her some Zofran to ensure no high risk for QT prolongation. Patient is cleared for disposition by psychiatry and currently pending.
--- NOTE | 2019-07-05 14:21 | PSYCHOLOGICAL NOTE ---
Psych Note - Psych Note Date seen by psych provider: 07/05/19 Psych Note: Reason For Consult: Consent Permissions: Patient is alert and orientated to person, place, time and circumstance. Mood is euthymic with congruent affect. Patient denies suicidal and homicidal ideation. Delusions are absent and behaviors congruent with an intact reality based presentation I organized and linear thought process. Eye contact is well- maintained. Conversational speech is within normal rate, tone and prosody. Intellectual abilities appear to be within the average range. Attention and concentration are good. Insight, judgment, impulse control are fair. Diagnosis: Bipolar I with psychotic features Medication recommendations per [facility]'s contracted psychiatrist Dr. Castro ESCALANTE are as follows Zyprexa 5mg twice daily Cogentin 1mg daily Impression\plan:Patient is recommended for IVC. Dr. Yeung was consulted to care management of this patient; attending physicians in agreement with recommendations and disposition.
[2019-07-05] MEDS: BENZTROPINE MESYLATE 1 MG TABLET PO SCH (15:26)
[2019-07-05] MEDS: OLANZAPINE 5 MG TAB.RAPDIS PO SCH ×2 (15:26→18:09)
[2019-07-06] MEDS: BENZTROPINE MESYLATE 1 MG TABLET PO SCH (09:02)
[2019-07-06] MEDS: OLANZAPINE 5 MG TAB.RAPDIS PO SCH (09:02)
[2019-07-06 11:12] VITALS: BP 122/70
--- NOTE | 2019-07-06 12:13 | PSYCHOLOGICAL NOTE ---
Psych Note - Psych Note Date seen by psych provider: 07/06/19 Time seen by psych provider: 10:10 Psych Note: Reason for consult: SI Patient states she is "fine and resilient." Patient remarks on the benefit of medication. Patient engaged in future oriented thinking. Patient expressed a desire to return to school, engage in mental health services, and work on healthy communication with mom. Patient would not answer about physical violence in the home. Patient was informed of transfer. Patient expressed concern about being labeled as "violent." Clinician stated her calm and cooperative demeanor would be noted. Patient denies suicidal and homicidal ideations. Patient denies auditory and visual hallucinations. Patient is alert and orientated to person, place, time and circumstance. Mood is normal with congruent affect. Patient denies suicidal and homicidal ideations. Delusions are absent and behaviors congruent with an intact reality based presentation (i.e., organized and linear thought process). There is no behavior that is suggestive of patient responding to internal stimuli. Eye contact is well-maintained. Conversational speech is within normal rate, tone and prosody. Intellectual abilities appear to be within the average range. Att ention and concentration are good. Insight, judgment, impulse control are fair. Diagnosis: Bipolar I with psychotic features Medication recommendations per [facility]'s contracted psychiatrist Dr. Castro ESCALANTE are as follows Zyprexa 5mg twice daily Cogentin 1mg daily Impression\\plan: Patient has been accepted for placement at [facility]. Dr. Yeung was consulted to care management of this patient; attending physicians in agreement with recommendations and disposition.
--- NOTE | 2019-07-06 12:25 | ER Document Report ---
Doctor's Note Notes: 07/06/19 12:24 Patient is a 23-year-old female who is here on IVC paperwork for suicidal ideation. I was at the bedside for an evaluation and morning rounds. Patient is resting comfortably and was made aware that she has been transferred [place] at [facility] for further psychiatric care. Patient reports she does not have any complaints at this time. Nursing staff state that the patient has been calm and cooperative. Patient in no acute distress, breathing even and unlabored and denies questions or concerns at this time.
== END 2019-07-06 12:40 ==
LOC: ER 23:45
DX: R45.851 Suicidal ideations (principal); Z63.8 Other specified problems related to primary support group; E87.6 Hypokalemia; R11.0 Nausea; R00.0 Tachycardia, unspecified; J45.909 Unspecified asthma, uncomplicated; Z87.891 Personal history of nicotine dependence; Z88.8 Allergy status to other drugs, medicaments and biological substances
CPT/HCPCS: 93005; 36415; 80307 ×4; 84703; 85025; 80053; 81001; 93010; J3490; 99285